=== PATIENT | male | born 2000 | race Caucasian/White ===

== ENCOUNTER 2020-06-03 02:09 | Emergency (ER) | payer SELFPAY ==
[~2020-06-03] VITALS: Ht 185.4 cm; Wt 127.3 kg
[2020-06-03 02:12] VITALS: BP 132/90
== END 2020-06-03 02:37 ==
LOC: ER 02:10
DX: Z04.1 Encounter for examination and observation following transport accident (principal); Z72.89 Other problems related to lifestyle
CPT/HCPCS: 99283